=== PATIENT | male | born 1960 | race Caucasian/White ===

== ENCOUNTER 2016-08-05 22:17 | Emergency (ER) | payer OTHER ==
--- NOTE | ~2016-08-05 | ER ---
PATIENT'S NAME: SEKOU [facility] AGE: 56 Y [address] ROOM: [place] [address] LOCATION: [facility] ADMIT DATE: 08/05/2016 ER/Outpatient Report DISCHARGE DATE: 08/05/2016 FAMILY PHYSICIAN: Ulises Martinez MD ATTENDING PHYSICIAN: Aris Soto Time of Arrival: 2220 hours. Time of Evaluation: 2225 hours. CHIEF COMPLAINT: Bleeding from a blood vessel. HISTORY OF PRESENT ILLNESS: The patient states approximately 1 hour prior to arrival he scratched his left lower leg and began bleeding from a varicosity that he has on his leg. States it was bleeding profusely. His did wrap it tightly with a towel and an Paulie wrap. He denies any injury to that leg other than scratching it. ALLERGIES: HE HAS NO KNOWN ALLERGIES. CURRENT MEDICATIONS: Include a bunch of ibuprofen, he states he takes 800 mg about every 2 hours for chronic pain. PAST MEDICAL HISTORY: Hypoglycemia, chronic back pain, right middle finger amputation. PAST SURGICAL HISTORY: Hernia repair. SOCIAL HISTORY: Smokes 1 pack per day and has for 35 years. Denies use of drugs or alcohol. REVIEW OF SYSTEMS: All negative other than those mentioned in the HPI. PHYSICAL EXAMINATION: VITAL SIGNS: He weighed 114.1 kg, blood pressure is 146/83, pulse of 81, respirations 18, O2 saturations 97% on room air. GENERAL: He is awake, alert, and oriented x4. SKIN: Halfway, warm, and dry. RESPIRATIONS: Even and nonlabored. Lung sounds are clear throughout. HEART: Regular rate and rhythm. SKIN: The patient's home dressing was removed. No active bleeding was noted. PATIENT'S NAME: [facility]ISHOP [facility] AGE: 56 Y [address] ROOM: [place], [place] [address] LOCATION: [facility] ADMIT DATE: 08/05/2016 ER/Outpatient Report DISCHARGE DATE: 08/05/2016 FAMILY PHYSICIAN: Ulises Martinez MD ATTENDING PHYSICIAN: Aris Soto Scratch area over a varicose vein was noted. Leg was cleansed well with saline, dried. Dermabond was placed over the scratched area. The patient was monitored. No active bleeding initiated. Dressing was reapplied. IMPRESSION: Abrasion, causing bleeding from a varicosity of the left lower leg. PLAN: Home, rest. Gently wash the leg tomorrow with soap and water. Discussed with the patient decreasing the amount of ibuprofen that he takes on a daily basis, to consider doing Tylenol as needed. If bleeding returns or worsens, he is welcome to return to the ER. Follow up with his primary provider. He verbalized understanding. LD ROQUE APRN FOR DO JESSICA BUSCH/modl /[id number] d: 08/06/162 t: 08/08/16 1230, OUTPATIENT REPORT
== END 2016-08-05 22:52 | disposition disaster alternative care site (69) ==
LOC: GACC 22:17
PROC: 0HQLXZZ Repair Left Lower Leg Skin, External Approach (ICD-10-PCS; principal; 2016-08-05)
DX: S80.812A Abrasion, left lower leg, initial encounter (principal); I83.892 Varicose veins of left lower extremity with other complications; F17.210 Nicotine dependence, cigarettes, uncomplicated; Z89.021 Acquired absence of right finger(s); Z79.899 Other long term (current) drug therapy; X58.XXXA Exposure to other specified factors, initial encounter